=== PATIENT | male | born 1930 | race African-American/Black ===

== ENCOUNTER 2017-03-23 16:00 | Emergency (ER) | payer MEDICARE, BC ==
[~2017-03-23 16:00] MED LIST: ATOR10TA PO; CEPH500C3 PO; LORTA5 PO; SULF1TAB47 PO; TAB-TAB PO
[2017-03-23 16:02] VITALS: BP 169/106; PULSE 106; RESP 14; TEMP 98.2; O2SAT 96
[2017-03-23] MEDS ORDERED: MECLIZINE HCL 25 MG TAB PO ONE (16:45)
[2017-03-23] MEDS ORDERED: SODIUM CHLORIDE 0.9% FLUSH 10 ML FLUSH IVF PRN (16:45)
--- NOTE | 2017-03-23 16:56 | RADRPT ---
EXAM DATE/TIME: 03/23/2017 16:43 [facility] COMPARISON: No previous studies available for comparison. INDICATIONS : Syncope. MEDICAL HISTORY : None. SURGICAL HISTORY : None. ENCOUNTER: Initial ACUITY: 1 day PAIN SCORE: 0/10 LOCATION: Bilateral chest FINDINGS: A single view of the chest demonstrates the lungs to be symmetrically aerated without evidence of mas s, infiltrate or effusion. The cardiomediastinal contours are unremarkable. Osseous structures are intact. CONCLUSION: Normal examination for a patient of this age. Neri Angel MD on March 23, 2017 at 16:53 Board Certified Radiologist. This report was verified electronically.
[2017-03-23 17:03] VITALS: PULSE 67; RESP 18; O2SAT 97
[2017-03-23] MEDS ORDERED: MULT-65 PO (17:10)
[2017-03-23] MEDS ORDERED: ALLO100T PO (17:10)
[2017-03-23] MEDS ORDERED: ASPI-516 CHEW (17:10)
[2017-03-23] MEDS ORDERED: LISI2.5T3 PO (17:10)
[2017-03-23 17:24] LABS: AUTOMATED NEUTROPHIL # 3.3 TH/MM3 (1.8-7.7); BASOPHIL % 0.6 % (0.0-2.0); EOSINOPHIL # 0.1 TH/MM3 (0-0.4); EOSINOPHIL % 1.6 % (0.0-4.0); HEMATOCRIT 46.2 % (39.0-51.0); HEMOGLOBIN 15.7 GM/DL (13.0-17.0); LYMPH % 35.1 % (9.0-44.0); LYMPHOCYTE # 2.1 TH/MM3 (1.0-4.8); MEAN CELL VOLUME 98.6 FL (80.0-100.0); MEAN CORPUSCULAR HEMOGLOBIN 33.4 PG (27.0-34.0); MEAN CORPUSCULAR HGB CONC 33.9 % (32.0-36.0); MEAN PLATELET VOLUME 8.4 FL (7.0-11.0); MONOCYTE # 0.5 TH/MM3 (0-0.9); NEUT % 54.7 % (16.0-70.0); PLATELET COUNT 169 TH/MM3 (150-450); RED BLOOD COUNT 4.69 MIL/MM3 (4.50-5.90); RED CELL DISTRIBUTION WIDTH 13.3 % (11.6-17.2)
[2017-03-23 17:32] LABS: ALBUMIN 3.9 GM/DL (3.4-5.0); ALT (GPT) 22 U/L (12-78); AST (GOT) 25 U/L (15-37); BLOOD UREA NITROGEN 15 MG/DL (7-18); CALCIUM 9.1 MG/DL (8.5-10.1); CHLORIDE 110 MEQ/L (98-107); CREATININE 1.09 MG/DL (0.60-1.30); GLOMERULAR FILTRATION RATE 78 ML/MIN (>89); GLUCOSE,RANDOM 107 MG/DL (74-106); SODIUM (NA) 140 MEQ/L (136-145)
[2017-03-23 17:36] LABS: ALKALINE PHOSPHATASE 108 U/L (45-117); TOTAL BILIRUBIN ADULT 0.7 MG/DL (0.2-1.0); TOTAL PROTEIN 7.7 GM/DL (6.4-8.2); TROPONIN I LESS THAN 0.02 NG/ML (0.02-0.05)
[2017-03-23 17:50] LABS: PROTHROMBIN TIME - PATIENT 10.3 SEC (9.8-11.6)
[2017-03-23] MEDS ORDERED: IOHEXOL 350 MG/ML 10 ML VIAL (for RAD DIAG) IVCONTRAST ONE (18:37)
[2017-03-23 18:44] VITALS: BP 168/92; PULSE 59; RESP 18; O2SAT 97
--- NOTE | 2017-03-23 18:46 | RADRPT ---
EXAM DATE/TIME: 03/23/2017 18:17 [facility] COMPARISON: No previous studies available for comparison. INDICATIONS : Dizziness. RADIATION DOSE: 40.63 CTDIvol (mGy) MEDICAL HISTORY : Cardiovascular disease. Hypertension. SURGICAL HISTORY : None. ENCOUNTER: Initial ACUITY: 1 day PAIN SCALE: 5/10 LOCATION: cranial TECHNIQUE: Multiple contiguous axial images were obtained of the head. Using automated exposure control and adj ustment of the mA and/or kV according to patient size, radiation dose was kept as low as reasonably a chievable to obtain optimal diagnostic quality images. DICOM format image data is available electro nically for review and comparison. FINDINGS: CEREBRUM: The ventricles are normal for age. No evidence of midline shift, mass lesion, hemorrhage or acute in farction. No extra-axial fluid collections are seen. POSTERIOR FOSSA: The cerebellum and brainstem are intact. The 4th ventricle is midline. The cerebellopontine angle i s unremarkable. EXTRACRANIAL: The visualized portion of the orbits is intact. SKULL: The calvaria is intact. No evidence of skull fracture. CONCLUSION: No acute intracranial abnormality demonstrated. Moshe Ford MD on March 23, 2017 at 18:43 Board Certified Radiologist. This report was verified electronically.
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
[2017-03-23 19:37] VITALS: BP 164/92
[2017-03-23] MEDS ORDERED: MECL-62 PO (19:38)
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
--- NOTE | 2017-03-24 15:02 | EKG ---
Date Performed: 03/23/2017 Time Performed: 17:15:43 PTAGE: 87 years EKG: SINUS BRADYCARDIA WITH FIRST DEGREE AV BLOCK WITH OCCASIONAL SUPRAVENTRICULAR PREMATURE COM PLEXES LOW QRS VOLTAGE IN PRECORDIAL LEADS SEPTAL MYOCARDIAL INFARCTION ABNORMAL ECG PREVIOUS TRACING : 11/15/2008 10.37 DOCTOR: Tenzin Silver Interpretating Date/Time 03/24/2017 15:01:11
== END 2017-03-23 20:05 | disposition home or self-care (01) ==
LOC: NEPC 16:00
DX: H81.10 Benign paroxysmal vertigo, unspecified ear (principal); I10 Essential (primary) hypertension; R00.1 Bradycardia, unspecified; Z79.899 Other long term (current) drug therapy
CPT/HCPCS: 70450; 70498; 71010; 80053; 84484; 85025; 85610; 85730; 93005; 99285; Q9967

== ENCOUNTER 2017-03-27 00:03 | Emergency (ER) | payer MEDICARE, BC ==
[~2017-03-27] VITALS: Ht 180.3 cm; Wt 90.0 kg
[~2017-03-27 00:03] MED LIST changes: +ALLO100T PO; +ASPI-516 CHEW; -ATOR10TA PO; -CEPH500C3 PO; +LISI2.5T3 PO; -LORTA5 PO; +MECL-62 PO; +MULT-65 PO; -SULF1TAB47 PO; -TAB-TAB PO
[2017-03-27 00:05] VITALS: BP 179/96; PULSE 67; RESP 14; TEMP 98.6; O2SAT 96
[2017-03-27 00:23] VITALS: BP 167/97; PULSE 62
[2017-03-27] MEDS ORDERED: LISI20TA PO (00:24)
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
[2017-03-27 00:57] VITALS: BP 145/95
== END 2017-03-27 01:16 | disposition home or self-care (01) ==
LOC: NEPC 00:03
DX: I10 Essential (primary) hypertension (principal)
CPT/HCPCS: 99281

== ENCOUNTER → 2017-09-08 | Outpatient (CLI) | payer MEDICARE, BC ==
[~2017-09-08] MED LIST changes: -LISI2.5T3 PO; +LISI20TA PO
--- NOTE | 2017-09-08 11:51 | RADRPT ---
EXAM DATE: 09/08/2017 11:41 AM EDT AGE/SEX: 87 years / Male INDICATIONS: Shortness of breath. CLINICAL DATA: This is the patient's initial encounter. Patient reports that signs and symptoms have been present for 4 - 6 months and indicates a pain score of 0/10. MEDICAL/SURGICAL HISTORY: . A-fib. None. COMPARISON: No prior exams available for comparison. FINDINGS: PA and lateral views of the chest demonstrate the lungs to be symmetrically aerated without evidence of mass, infiltrate or effusion. The cardiomediastinal contours are unremarkable. Thoracic aorta tort uous uncoiled. Degenerative changes thoracic spine and about the right shoulder. CONCLUSION: Negative for acute disease. Thoracic aorta tortuous uncoiled. Electronically signed by: Frantz Cerrato MD 09/08/2017 11:49 AM EDT
== END ==
LOC: HRSP 10:28
PROVIDERS: ATTEND Internal Medicine Sleep Medicine
DX: R06.89 Other abnormalities of breathing (principal)
CPT/HCPCS: 36600; 71046; 82805; 94060; 94726; 94729

== ENCOUNTER 2017-12-03 17:02 | Observation (INO) ==
--- NOTE | 2017-12-03 18:35 | ED ---
HPI General Chief Complaint: Chest Pain Stated Complaint: Chest pain Time Seen by Provider: 12/03/17 18:10 Source: patient and family Mode of arrival: ambulatory Limitations: no limitations History of Present Illness HPI narrative: Patient is an 87-year-old male with history of atrial fibrillation as well as gout, presents to the emergency room with complaints of chest pain. Patient reports that he follows up with his physician primary care sports medicine, Dr. Sanders. Patient reports that in September, he started Xarelto as he was diagnosed with atrial fibrillation. Patient reports that he went for a yearly stress test on Wednesday -he was completely asymptomatic. Patient reports that yesterday he began to feel chest pain. Patient reports that he has been having "pressure on his chest -it feels as if there is a hand pressing against my chest." Patient reports his symptoms are exacerbated by taking a deep breath. Patient reports that he has been feeling lightheaded and dizzy with the symptoms. Patient did call his physician primary care sports medicine today and was told to come to the emergency room for evaluation. Patient denies any history of ACS, denies any history of coronary artery disease, he does not have any cardiac stents. Currently reports that he only takes medications for Xarelto as well as for his gout. Patient was told by Dr. Sanders that his nuclear stress test was normal. Patient currently with "a little pain to my chest." Complete Quality Measures for STEMI Alert Patients Related Data Home Medications Medication Instructions Recorded Confirmed allopurinol 100 mg PO DAILY 12/03/17 12/03/17 multivitamin [Multiple Vitamins] 1 tab PO DAILY 12/03/17 12/03/17 rivaroxaban [Xarelto] 10 mg PO DAILY 12/03/17 12/03/17 Allergies Allergy/AdvReac Type Severity Reaction Status Date / Time No Known Allergies Allergy Unverified 12/03/17 17:26 Review of Systems ROS: all other systems reviewed are negative [facility] Medical History Medical History Arthritis (Acute) Atrial fibrillation (Acute) Osteoarthritis (Acute) Surgical History Surgical History History of knee replacement (Acute) Social History Social History Substance History: No History of Abuse Second Hand Smoke Exposure: No Smoking Status: Never smoker How Often Do You Have a Drink Containing Alcohol: Never Recent Travel in [facility] within the Last 8 Weeks: No Recent Out of Country Travel within the Last 8 Weeks: No Immunization History Tetanus Immunization: Unsure Hx Influenza Vaccine This Season: No Exam Narrative Exam Narrative: GENERAL: mild distress SKIN: Focused skin assessment warm/dry. HEAD: Atraumatic. Normocephalic. EYES: Pupils equal and round. No scleral icterus. No injection or drainage. ENT: No nasal bleeding or discharge. Mucous membranes pink and moist. NECK: Trachea midline. No JVD. CARDIOVASCULAR: Irregular rate and rhythm. No murmur appreciated. RESPIRATORY: No accessory muscle use. Clear to auscultation. Breath sounds equal bilaterally. GASTROINTESTINAL: Abdomen soft, non-tender, nondistended. Hepatic and splenic margins not palpable. MUSCULOSKELETAL: No obvious deformities. No clubbing. No cyanosis. No edema. NEUROLOGICAL: Awake and alert. No obvious cranial nerve deficits. Motor grossly within normal limits. Normal speech. PSYCHIATRIC: Appropriate mood and affect; insight and judgment normal. Course Initial Documented Vital Signs Temperature 97.7 F 12/03/17 17:23 Pulse Rate 80 12/03/17 17:23 Respiratory Rate 16 12/03/17 17:23 Blood Pressure 123/88 12/03/17 17:23 Pulse Oximetry 96 12/03/17 17:23 Last Documented Vital Signs Temperature 97.7 F 12/03/17 17:23 Pulse Rate 80 12/03/17 17:23 Respiratory Rate 16 12/03/17 17:23 Blood Pressure 123/88 12/03/17 17:23 Pulse Oximetry 96 12/03/17 17:23 Sign Out Sign Out Data: Patient Sign Out occurred on 12/03/17 at 19:27. Patient's care was discussed, and care was transferred from Iwona Torres to Lisbeth Owens MD. Sign Out Comment: patient pending lab work as well as re-evaluation he will ultimately require observation to the hospital Last updated by Iwona Torres at 12/03/17 18:56 Post-Handoff Eval: Accepted in transfer of care from Dr. Torres for follow-up of pending lab work with plan for observation admission Medical Decision Making MDM Narrative Medical decision making narrative: During the course of the patients emergency department visit, the patients history, examination, and differential diagnosis were reviewed with the patient. The patient was placed on a radiation monitor with oximetry and frequent blood pressure monitoring. The patient had an IV access obtained and blood work sent for analysis. The patient was initially provided an aspirin as well as SL nitro. At 8 PM labs resulted cardiac enzymes found to be in normal range, d-dimer is not elevated, patient is noted to have mild renal insufficiency with otherwise stable CBC and chemistries; patient is asymptomatic EKG shows atrial flutter with ventricular rate of [address] elevation injury pattern or ectopy noted nonspecific ST and T-wave abnormality artifact is present at baseline; patient is aware of plan for observation admission to chest pain center per protocol and is agreeable. Medical Screen Exam Complete: Yes Emergency Medical Condition: Yes Differential Diagnosis Differential Diagnosis: ACS, Arrythmia, PE, electrolyte abnormality Medical Records Medical records reviewed: Yes I reviewed the patient's medical records. Lab Data Lab results reviewed: Yes I reviewed the patient's lab results. Result diagrams: 12/03/17 18:30 12/03/17 18:30 Lab Results 12/03/17 12/03/17 12/03/17 Range/Units 18:30 18:30 18:30 WBC 6.7 (4.0-11.0) th/mm3 RBC 4.21 L (4.50-5.90) mil/mm3 Hgb 14.2 (13.0-17.0) gm/dL Hct 41.2 (39.0-51.0) % MCV 98.0 (80.0-100.0) fL MCH 33.8 (27.0-34.0) pg MCHC 34.5 (32.0-36.0) % RDW 13.1 (11.6-17.2) % Plt Count 173 (150-450) th/mm3 MPV 8.3 (7.0-11.0) fL Neut % (Auto) 51.7 (16.0-70.0) % Lymph % (Auto) 34.9 (9.0-44.0) % [place] % (Auto) 10.0 H (0.0-8.0) % Eos % (Auto) 2.5 (0.0-4.0) % Baso % (Auto) 0.9 (0.0-2.0) % Neut # (Auto) 3.5 (1.8-7.7) th/mm3 Lymph # (Auto) 2.4 (1.0-4.8) th/mm3 [place] # (Auto) 0.7 (0.0-0.9) th/mm3 Eos # (Auto) 0.2 (0.0-0.4) th/mm3 Baso # (Auto) 0.1 (0.0-0.2) th/mm3 WBC Differential . Differential Comment Auto diff final PT (9.8-11.6) sec INR Ratio APTT (24.3-30.1) sec D-Dimer Quant (PE/DVT) (0.00-0.50) mg/L FEU Sodium 143 (136-145) meq/L Potassium 4.2 (3.5-5.1) meq/L Chloride 110 H (98-107) meq/L Carbon Dioxide 23.4 (21.0-32.0) meq/L Anion Gap 10 (5-15) meq/L BUN 19 H (7-18) mg/dL Creatinine 1.33 H (0.60-1.30) mg/dL Estimated GFR 62 L (>89) mL/min Random Glucose 114 H (74-106) mg/dL Calcium 9.1 (8.5-10.1) mg/dL Total Bilirubin 0.3 (0.2-1.0) mg/dL AST 17 (15-37) U/L ALT 17 (12-78) U/L Alkaline Phosphatase 106 (45-117) U/L Total Creatine Kinase 121 (39-308) U/L CK-MB (CK-2) 1.6 (0.5-3.6) ng/mL Troponin I Less than 0.02 L (0.02-0.05) ng/mL B-Natriuretic Peptide 49 (0-100) pg/mL Total Protein 7.2 (6.4-8.2) g/dL Albumin 3.6 (3.4-5.0) g/dL Lipase 126 (73-393) U/L 12/03/17 12/03/17 Range/Units 18:30 20:36 WBC (4.0-11.0) th/mm3 RBC (4.50-5.90) mil/mm3 Hgb (13.0-17.0) gm/dL Hct (39.0-51.0) % MCV (80.0-100.0) fL MCH (27.0-34.0) pg MCHC (32.0-36.0) % RDW (11.6-17.2) % Plt Count (150-450) th/mm3 MPV (7.0-11.0) fL Neut % (Auto) (16.0-70.0) % Lymph % (Auto) (9.0-44.0) % [place] % (Auto) (0.0-8.0) % Eos % (Auto) (0.0-4.0) % Baso % (Auto) (0.0-2.0) % Neut # (Auto) (1.8-7.7) th/mm3 Lymph # (Auto) (1.0-4.8) th/mm3 [place] # (Auto) (0.0-0.9) th/mm3 Eos # (Auto) (0.0-0.4) th/mm3 Baso # (Auto) (0.0-0.2) th/mm3 WBC Differential Differential Comment PT 11.2 (9.8-11.6) sec INR 1.1 Ratio APTT 30.5 H (24.3-30.1) sec D-Dimer Quant (PE/DVT) 0.48 (0.00-0.50) mg/L FEU Sodium (136-145) meq/L Potassium (3.5-5.1) meq/L Chloride (98-107) meq/L Carbon Dioxide (21.0-32.0) meq/L Anion Gap (5-15) meq/L BUN (7-18) mg/dL Creatinine (0.60-1.30) mg/dL Estimated GFR (>89) mL/min Random Glucose (74-106) mg/dL Calcium (8.5-10.1) mg/dL Total Bilirubin (0.2-1.0) mg/dL AST (15-37) U/L ALT (12-78) U/L Alkaline Phosphatase (45-117) U/L Total Creatine Kinase 108 (39-308) U/L CK-MB (CK-2) 1.5 (0.5-3.6) ng/mL Troponin I Less than 0.02 L (0.02-0.05) ng/mL B-Natriuretic Peptide (0-100) pg/mL Total Protein (6.4-8.2) g/dL Albumin (3.4-5.0) g/dL Lipase (73-393) U/L Imaging Data Radiologist's impression: Chest X-Ray 12/03/17 18:18 CONCLUSION: No acute cardiopulmonary disease. Discharge Plan Discharge Disposition Patient Disposition: 30 Still Patient Discharge Condition Condition: Stable Discharge Details Diagnosis: Chest pain Physicians Team ED Provider: Lisbeth Owens Primary Care Provider: Porfirio Schwarz Attending Provider: Stacey Chadwick Status ED Status: Admitted Observation Patient
[2017-12-03 18:40] LABS: Baso # (Auto) 0.1 th/mm3 (0.0-0.2); Baso % (Auto) 0.9 % (0.0-2.0); Eos # (Auto) 0.2 th/mm3 (0.0-0.4); Eos % (Auto) 2.5 % (0.0-4.0); Hematocrit 41.2 % (39.0-51.0); Hemoglobin 14.2 gm/dL (13.0-17.0); Lymph # (Auto) 2.4 th/mm3 (1.0-4.8); Lymph % (Auto) 34.9 % (9.0-44.0); Mean Corpuscular HGB Conc 34.5 % (32.0-36.0); Mean Corpuscular Hemoglobin 33.8 pg (27.0-34.0); Mean Platelet Volume 8.3 fL (7.0-11.0); Mono # (Auto) 0.7 th/mm3 (0.0-0.9); Neut # (Auto) 3.5 th/mm3 (1.8-7.7); Neut % (Auto) 51.7 % (16.0-70.0); Platelet Count 173 th/mm3 (150-450); Red Blood Count 4.21 mil/mm3 (4.50-5.90); Red Cell Distribution Width 13.1 % (11.6-17.2); White Blood Count 6.7 th/mm3 (4.0-11.0)
[2017-12-03 18:56] LABS: Activated Partial Thrombo Time 30.5 sec (24.3-30.1); INR 1.1 Ratio; Prothrombin Time 11.2 sec (9.8-11.6)
[2017-12-03 18:58] LABS: D-Dimer 0.48 mg/L FEU (0.00-0.50)
[2017-12-03 19:02] LABS: Alanine Aminotransferase 17 U/L (12-78)
[2017-12-03 19:05] LABS: Albumin 3.6 g/dL (3.4-5.0); Anion Gap 10 meq/L (5-15); Aspartate Aminotransferase 17 U/L (15-37); Blood Urea Nitrogen 19 mg/dL (7-18); Calcium 9.1 mg/dL (8.5-10.1); Carbon Dioxide 23.4 meq/L (21.0-32.0); Chloride 110 meq/L (98-107); Glomerular Filtration Rate 62 mL/min (>89); Glucose,Random 114 mg/dL (74-106); Lipase 126 U/L (73-393); Potassium 4.2 meq/L (3.5-5.1); Sodium 143 meq/L (136-145)
[2017-12-03 19:06] LABS: Alkaline Phosphatase 106 U/L (45-117); Creatine Kinase 121 U/L (39-308); Total Protein 7.2 g/dL (6.4-8.2)
[2017-12-03 19:18] LABS: Creatine Kinase MB 1.6 ng/mL (0.5-3.6)
--- NOTE | 2017-12-03 19:53 | XR ---
EXAM DATE: 12/03/2017 7:46 PM EDT AGE/SEX: 87 years / Male INDICATIONS: Chest pain. CLINICAL DATA: This is the patient's initial encounter. Patient reports that signs and symptoms have been present for 3 days and indicates a pain score of 0/10. MEDICAL/SURGICAL HISTORY: . A-fib. None. COMPARISON: [facility] [place]. . FINDINGS: A single AP view of the chest demonstrates the lungs to be symmetrically aerated without evidence of mass, infiltrate or effusion. The cardiomediastinal contours are unremarkable. Degenerative changes are noted throughout the thoracic spine. CONCLUSION: No acute cardiopulmonary disease. Electronically signed by: Charlie Mari MD 12/03/2017 7:52 PM EDT
[2017-12-03 21:33] LABS: Creatine Kinase 108 U/L (39-308)
[2017-12-03 21:45] LABS: Creatine Kinase MB 1.5 ng/mL (0.5-3.6)
[2017-12-04 03:14] LABS: CKMB Percent 0.3 % (0.0-4.0); Creatine Kinase MB 1.1 ng/mL (0.5-3.6)
[2017-12-04] MEDS ORDERED: Acetaminophen 500 MG Tablet PO PRN (07:50)
--- NOTE | 2017-12-04 10:18 | P.HPCA ---
History of Present Illness Primary Care Physician: Porfirio Schwarz MD Chief Complaint: Chest tightness on inspiration History of Present Illness: 87-year-old male with history of atrial fibrillation, gout, and arthritis presents emergency room for further evaluation of chest tightness. Recently completed routine chemical stress test Wednesday12/01/17 with [email or web address]. noticed substernal nonexertional chest tightness during deep inspiration only. Severity mild. No radiation. Duration only during inspiration. No associated symptoms of nausea, vomiting, dyspnea, or diaphoresis. No precipitating or relieving factors. Leaving Wednesday to [place] for one week, therefore called brake engineer office to determine if above symptoms where possible side affects from recent cardiac testing. Office directed him to come to ER for further evaluation. Since arriving to ER discomfort resolved. Requesting to go home. No known coronary artery disease, diabetes, hypertension, or hyperlipidemia. No recent illness, fever, cough or injury. Past cardiac testing 12/01/17 Lexiscan (out pt with [facility]) Reported to be unremarkable with EF approx 56%. Patient's brake engineer is Dr. Hillman. Social history Lifelong non-smoker. Denies any alcohol or illegal drug use. Endorses an active lifestyle. - Diagnosis (1) Atypical chest pain (2) History of atrial fibrillation Review of Systems All other systems reviewed negative except as stated [facility] - History History Provided By: Patient - Medical History Medical History: Medical History (Last Updated 12/04/17 @ 10:28 by TAHIRA Mensah) Arthritis Gout Osteoarthritis - Surgical History Surgical History: Surgical History (Last Reviewed 12/03/17 @ 18:37 by Iwona Torres) History of knee replacement - Social History I have reviewed the patient's Social History: Yes - Tobacco History Second Hand Smoke Exposure: No Tobacco Use In Past 30 Days: No Smoking Status: Never smoker - Alcohol History How Often Do You Have a Drink Containing Alcohol: Never - Substance Use History Substance History: No History of Abuse - Travel History History of Recent Travel: No Recent Travel in the [place] Within the Last 8 Weeks: No Recent Travel Out of the Country Within the Last 8 Weeks: No - Immunization History Tetanus Immunization: Unsure Hx Influenza Vaccine This Season: No Medications and Allergies Active Medications: Active Medications Acetaminophen (Tylenol) 500 mg PO Q4H PRN PRN Reason: HEADACHE Nitroglycerin (Nitrostat Sl) 0.4 mg SL Q5M PRN PRN Reason: CHEST PAIN Ondansetron HCl (Zofran Inj) 4 mg IV.PUSH Q6H PRN PRN Reason: NAUSEA Sodium Chloride (Ns Flush) 2 ml IV.FLUSH UNSCH PRN PRN Reason: FLUSH AFTER USING IV ACCESS Sodium Chloride (Ns Flush) 2 ml IV.FLUSH BID JAIME Last Admin: 12/03/17 22:11 Dose: 2 ml Sodium Chloride (Ns Flush) 2 ml IV.FLUSH PRN PRN PRN Reason: FLUSH AFTER USING IV ACCESS Last Admin: 12/04/17 09:07 Dose: 2 ml Allergies Allergy/AdvReac Type Severity Reaction Status Date / Time No Known Allergies Allergy Unverified 12/03/17 17:26 Home Medications Medication Instructions Recorded Confirmed Type allopurinol 100 mg PO DAILY 12/03/17 12/03/17 History multivitamin [Multiple Vitamins] 1 tab PO DAILY 12/03/17 12/03/17 History rivaroxaban [Xarelto] 10 mg PO DAILY 12/03/17 12/03/17 History Exam Vital signs: Vital Signs 12/03/17 17:23 12/04/17 00:00 12/04/17 01:14 Temperature 97.7 F 97.6 F Pulse Rate 80 78 43 L Respiratory Rate 16 18 Blood Pressure 123/88 156/86 H Pulse Oximetry 96 96 12/04/17 03:54 12/04/17 07:51 12/04/17 08:00 Temperature 96.8 F L 97.6 F Pulse Rate 57 L 57 L Respiratory Rate 18 17 Blood Pressure 127/84 132/76 Pulse Oximetry 96 96 97 Intake & Output 12/03/17 12/04/17 12/04/17 18:59 06:59 18:59 Weight 88.904 kg Narrative: GENERAL: Alert WN, WD, NAD, pleasant, -Ind[place]ian elderly male who appears younger than stated age HEAD: NC, AT CV: Bradycardic, regular rate, without murmur, rub, gallop, no JVD, S1-S2 no S3- S4. Chest wall nontender to palpation. RESP: Clear lungs throughout bilateral, no crackles, wheeze, rhonchi, symmetrical chest rise, nonlabored, able to speak in full sentences ABD: Soft, NT, ND, no masses, positive bowel tones EXT: Pulses +2x4, no dependent edema MS: Normal tone x4 extremities, nontender, no obvious deformities, full range of motion NEURO: CN II through CN XII grossly intact, motor strength 5/5 PSYCH: A+O x3, pleasant affect, appropriate speech, mood, insight and judgment SKIN: Normal turgor, normal texture, no lesions, no rashes, brisk cap refill, even hair distribution Results 12/03/17 18:30 12/03/17 18:30 Cardiac Enzymes 12/03/17 12/03/17 12/03/17 Range/Units 18:30 18:30 20:36 AST 17 (15-37) U/L CK-MB (CK-2) 1.6 1.5 (0.5-3.6) ng/mL Troponin I Less than 0.02 L Less than 0.02 L (0.02-0.05) ng/mL B-Natriuretic Peptide 49 (0-100) pg/mL 12/03/17 12/03/17 Range/Units 23:40 23:40 AST (15-37) U/L CK-MB (CK-2) 1.1 (0.5-3.6) ng/mL Troponin I Less than 0.02 L (0.02-0.05) ng/mL B-Natriuretic Peptide (0-100) pg/mL Coagulation 12/03/17 12/03/17 Range/Units 18:30 18:30 PT 11.2 (9.8-11.6) sec APTT 30.5 H (24.3-30.1) sec B-Natriuretic Peptide 49 (0-100) pg/mL CBC 12/03/17 Range/Units 18:30 WBC 6.7 (4.0-11.0) th/mm3 RBC 4.21 L (4.50-5.90) mil/mm3 Hgb 14.2 (13.0-17.0) gm/dL Hct 41.2 (39.0-51.0) % Plt Count 173 (150-450) th/mm3 Neut # (Auto) 3.5 (1.8-7.7) th/mm3 Lymph # (Auto) 2.4 (1.0-4.8) th/mm3 [place] # (Auto) 0.7 (0.0-0.9) th/mm3 Eos # (Auto) 0.2 (0.0-0.4) th/mm3 Baso # (Auto) 0.1 (0.0-0.2) th/mm3 Comprehensive Metabolic Panel 12/03/17 Range/Units 18:30 Sodium 143 (136-145) meq/L Potassium 4.2 (3.5-5.1) meq/L Chloride 110 H (98-107) meq/L Carbon Dioxide 23.4 (21.0-32.0) meq/L BUN 19 H (7-18) mg/dL Creatinine 1.33 H (0.60-1.30) mg/dL Calcium 9.1 (8.5-10.1) mg/dL AST 17 (15-37) U/L ALT 17 (12-78) U/L Alkaline Phosphatase 106 (45-117) U/L Total Protein 7.2 (6.4-8.2) g/dL Albumin 3.6 (3.4-5.0) g/dL Intake and Output 12/03/17 12/04/17 12/04/17 22:59 06:59 14:59 Other: Weight 88.904 kg EKG interpretations - Dysrhythmias Supraventricular dysrhythmia: atrial fibrillation (1st,2nd EKG atrial flutter, 3rd EKG Afib, all ekg nonspecific st t segment change) Caprini VTE Risk Assessment Caprini VTE Risk Assessment: Moderate/High Risk (score >= 2) Caprini Risk Assessment Model: Point Value = 1 Point Value = 2 Point Value = 3 Point Value = 5 Age 41-60 Minor surgery BMI > 25 kg/m2 Swollen legs Varicose veins or History of unexplained or recurrent spontaneous Oral contraceptives or hormone replacement Sepsis (< 1 month) Serious lung disease, including pneumonia (< 1 month) Abnormal pulmonary function Acute myocardial infarction Congestive heart failure (< 1 month) History of inflammatory bowel disease Medical patient at bed rest Age 61-74 Arthroscopic surgery Major open surgery (> 45 min) Laparoscopic surgery (> 45 min) Malignancy Confined to bed (> 72 hours) Immobilizing plaster cast Central venous access Age >= 75 History of VTE Family history of VTE Factor V Leiden Prothrombin [id number] Lupus anticoagulant Anticardiolipin antibodies Elevated serum homocysteine Heparin-induced thrombocytopenia Other congenital or acquired thrombophilia Stroke (< 1 month) Elective arthroplasty Hip, pelvis, or leg fracture Acute spinal cord injury (< 1 month) Prophylaxis Regimen: Total Risk Factor Score Risk Level Prophylaxis Regimen 0-1 Low Early ambulation 2 Moderate Order ONE of the following: *Sequential Compression Device (SCD) *Heparin 5000 units SQ BID 3-4 Higher Order ONE of the following medications: *Heparin 5000 units SQ TID *Enoxaparin/Lovenox 40 mg SQ daily (WT < 150 kg, CrCl > 30 mL/min) *Enoxaparin/Lovenox 30 mg SQ daily (WT < 150 kg, CrCl > 10-29 mL/min) *Enoxaparin/Lovenox 30 mg SQ BID (WT < 150 kg, CrCl > 30 mL/min) AND/OR *Sequential Compression Device (SCD) 5 or more Highest Order ONE of the following medications: *Heparin 5000 units SQ TID (Preferred with Epidurals) *Enoxaparin/Lovenox 40 mg SQ daily (WT < 150 kg, CrCl > 30 mL/min) *Enoxaparin/Lovenox 30 mg SQ daily (WT < 150 kg, CrCl > 10-29 mL/min) *Enoxaparin/Lovenox 30 mg SQ BID (WT < 150 kg, CrCl > 30 mL/min) AND *Sequential Compression Device (SCD) Assessment and Plan - Assessment (1) Atypical chest pain Code(s): R07.89 - Other chest pain Status: Acute Plan: Admitted to chest pain center. ACS ruled out with 3 sets of EKGs and cardiac enzymes. Will be seen evaluated by Dr. Ernesto Milton. Likely will discharge later this morning. Discomfort atypical for cardiac etiology, also reporting unremarkable cardiac stress test early this week. Further disposition to follow after evaluation by brake engineer. Discussed above with patient and his two sons at bedside, all agreeable to plan of care. (2) History of atrial fibrillation Code(s): Z86.79 - Personal history of other diseases of the circulatory system Status: Chronic Plan: Continue Xarelto. H&P: Quality - VTE Deep Vein Thrombosis/Pulmonary Embolism Present on Admission: No
--- NOTE | 2017-12-04 10:48 | P.PNCA ---
Subjective Interval history: Patient is an 87-year-old gentleman followed routinely by Dr. Sanders for cardiovascularly related issues. He was seen by the nurse practitioner and then presented to me. Documentation was reviewed laboratory radiographic and electrocardiographic data was also reviewed. The patient was then seen personally and examined. He is currently ruled out for ACS, has no further symptoms, had a nuclear stress test within the last week which was interpreted as normal and is emphatic that he would like to be discharged quickly so that he can attend the [employer] game beginning shortly. I am in agreement with the documentation the evaluation for the plan was discussed with the nurse practitioner and I will approve his discharge as requested. He is to follow-up with his information systems auditor this coming week. Physical Exam Vital signs: Vital Signs 12/03/17 17:23 12/04/17 00:00 12/04/17 01:14 Temperature 97.7 F 97.6 F Pulse Rate 80 78 43 L Respiratory Rate 16 18 Blood Pressure 123/88 156/86 H Pulse Oximetry 96 96 12/04/17 03:54 12/04/17 07:51 12/04/17 08:00 Temperature 96.8 F L 97.6 F Pulse Rate 57 L 57 L Respiratory Rate 18 17 Blood Pressure 127/84 132/76 Pulse Oximetry 96 96 97 Intake & Output 12/03/17 12/04/17 12/04/17 18:59 06:59 18:59 Weight 88.904 kg Narrative: I am in agreement with the documentation physical exam is entered Assessment and Plan - Assessment (1) Atypical chest pain Code(s): R07.89 - Other chest pain Status: Acute Plan: Admitted to chest pain center. ACS ruled out. (2) History of atrial fibrillation Code(s): Z86.79 - Personal history of other diseases of the circulatory system Status: Chronic
[2017-12-04] MEDS ORDERED: Allopurinol 100 MG Tablet PO SCH (11:00)
[2017-12-04] MEDS ORDERED: Rivaroxaban 10 MG Tablet PO SCH (12:00)
--- NOTE | 2017-12-04 12:28 | ECG ---
Date Performed: 12/03/2017 Time Performed: 23:59:16 PTAGE: 87 years EKG: ATRIAL flutter MODERATE INTRAVENTRICULAR CONDUCTION DELAY NONSPECIFIC T-WAVE ABNORMALITY AB NORMAL RHYTHM ECG No significant change NO PREVIOUS TRACING DOCTOR: Ernesto Milton Interpretating Date/Time 12/04/2017 12:26:36
--- NOTE | 2017-12-04 12:29 | ECG ---
Date Performed: 12/03/2017 Time Performed: 21:53:49 PTAGE: 87 years EKG: Atrial flutter NONSPECIFIC ST & T-WAVE ABNORMALITY ABNORMAL ECG PREVIOUS TRACING : 12/03/2017 17.33 DOCTOR: Ernesto Milton Interpretating Date/Time 12/04/2017 12:28:22
--- NOTE | 2017-12-04 12:32 | ECG ---
Date Performed: 12/03/2017 Time Performed: 17:33:08 PTAGE: 87 years EKG: ATRIAL FLUTTER/TACHYCARDIA MODERATE INTRAVENTRICULAR CONDUCTION DELAY NONSPECIFIC ST & T-WA VE ABNORMALITY ABNORMAL ECG PREVIOUS TRACING : 03/23/2017 17.15 DOCTOR: Ernesto Milton Interpretating Date/Time 12/04/2017 12:30:32
== END 2017-12-04 11:32 | disposition home or self-care (01) ==
LOC: NEPC 17:02 → NEDA 17:02 → NEPHCDU 23:34
PROVIDERS: ADMIT Internal Medicine Interventional Cardiology; ATTEND Internal Medicine Interventional Cardiology